=== PATIENT | male | born 1990 | race African-American/Black ===

== ENCOUNTER 2017-12-03 20:23 | Emergency (ER) | payer OTHER ==
[~2017-12-03] VITALS: Ht 170.2 cm; Wt 81.8 kg
[~2017-12-03 20:23] MED LIST: BENADRYL50 MG PO; MOTRIN600 MG PO; PREDNISONE10 MG PO; TERBINAFINE HC250 MG PO
[2017-12-03] MEDS ORDERED: MOTRIN800 MG PO (22:24)
[2017-12-03 22:44] VITALS: BP 138/73
== END 2017-12-03 22:57 | disposition home or self-care (01) ==
LOC: EXP 20:23 → EME 20:23 → EXP 22:57
DX: S93.402A Sprain of unspecified ligament of left ankle, initial encounter (principal); X50.1XXA Overexertion from prolonged static or awkward postures, initial encounter; Y93.67 Activity, basketball
CPT/HCPCS: 73610; 99281; 99284